=== PATIENT | male | born 1945 | race Caucasian/White ===

== ENCOUNTER 2017-06-10 16:07 | Emergency (ER) | payer OTHER, MEDICARE, MEDICAID ==
[~2017-06-10] VITALS: Ht 149.9 cm; Wt 62.9 kg
[2017-06-10 16:37] VITALS: BP 136/76
== END 2017-06-10 17:32 | disposition home or self-care (01) ==
LOC: ER 16:23
DX: M25.511 Pain in right shoulder (principal); M65.20 Calcific tendinitis, unspecified site; M19.011 Primary osteoarthritis, right shoulder; I10 Essential (primary) hypertension; E78.00 Pure hypercholesterolemia, unspecified
CPT/HCPCS: 73030; 99284

== ENCOUNTER 2017-11-09 04:48 | Emergency (ER) | payer OTHER, MEDICAID, MEDICARE ==
[~2017-11-09] VITALS: Ht 157.5 cm; Wt 64.0 kg
[2017-11-09] MEDS ORDERED: TETANUS, DIPHTHERIA, PERTUSSIS VAC/PF 0.5ML (>7YR OLD) IM ONE (07:00)
[2017-11-09] MEDS ORDERED: LIDOCAINE HCL 1% 20ML VIAL (Pyxis) INJ MC ONE ×3 (07:00→08:00)
[2017-11-09] MEDS ORDERED: LIDOCAINE HCL/PF 1% 10 MG/ML 5ML VIAL IJ ONE (08:00)
[2017-11-09 09:37] LABS: *AMPHETAMINES SCREEN URINE NEGATIVE (NEGATIVE); *BARBITURATES SCREEN URINE NEGATIVE (NEGATIVE); *BENZODIAZEPINES SCREEN URINE NEGATIVE (NEGATIVE); *COCAINE SCREEN URINE NEGATIVE (NEGATIVE); OPIATES URINE SCREEN NEGATIVE (NEGATIVE)
[2017-11-09 09:38] VITALS: BP 145/74
[2017-11-09 09:39] LABS: CANNABINOID URINE SCREEN NEGATIVE (NEGATIVE); METHADONE URINE SCREEN NEGATIVE (NEGATIVE); PHENCYCLIDINE URINE SCREEN NEGATIVE (NEGATIVE)
== END 2017-11-09 09:39 | disposition home or self-care (01) ==
LOC: ER 06:39
DX: S01.511A Laceration without foreign body of lip, initial encounter (principal); E78.00 Pure hypercholesterolemia, unspecified; I10 Essential (primary) hypertension; W01.0XXA Fall on same level from slipping, tripping and stumbling without subsequent striking against object, initial encounter; Y93.89 Activity, other specified; Y92.89 Other specified places as the place of occurrence of the external cause; Y99.0 Civilian activity done for income or pay
CPT/HCPCS: 12011; 36415; 70450; 70486; 72125; 80305; 90471; 90715; 99285; G0482; J3490

== ENCOUNTER 2017-11-13 09:51 | Emergency (ER) | payer OTHER, MEDICARE, MEDICAID ==
[~2017-11-13] VITALS: Ht 157.5 cm; Wt 59.0 kg
[2017-11-13 10:04] VITALS: BP 105/68
== END 2017-11-13 10:42 | disposition home or self-care (01) ==
LOC: ER 10:20
DX: Z48.02 Encounter for removal of sutures (principal)
CPT/HCPCS: 99281